=== PATIENT | male | born 1980 | race Caucasian/White ===

== ENCOUNTER 2020-10-07 15:30 | Outpatient (REF) | payer OTHER, SELFPAY | END 2020-10-07 15:31 | disposition home or self-care (01) | LOC: HO.LAB 15:30 | PROVIDERS: Visit Provider Internal Medicine | DX: Z20.828 Contact with and (suspected) exposure to other viral communicable diseases (principal) | CPT/HCPCS: 36415; C9803; U0003 ==

== ENCOUNTER 2020-12-14 11:21 | Outpatient (REF) | payer OTHER, SELFPAY ==
[2020-12-14 12:03] LABS: MANUAL DIFF FLAG NO
[2020-12-14 12:07] LABS: Basophils Percent Auto 0.5 % (0-2); Eosinophils Absolute Auto 0.2 X10*3/uL (0.0-0.4); Eosinophils Percent Auto 3.2 % (0-4); Hematocrit 42.4 % (42-52); Hemoglobin 14.5 g/dl (14.0-18.0); Imm Gran Abs Auto 0.01 X10*3/uL (0.00-0.03); Imm Gran Pct Auto 0.2 % (0.0-0.4); Lymphocytes Absolute Auto 2.3 X10*3/uL (1.2-4.9); Lymphocytes Percent Auto 37.4 % (20-40); Mean Corpuscular HGB Conc 34.2 g/dl (31.0-36.0); Mean Corpuscular Hemoglobin 29.3 pg (27.0-33.0); Mean Corpuscular Volume 85.7 fL (80-98); Mean Platelet Volume 9.8 fL (9.4-12.4); Monocytes Absolute Auto 0.5 X10*3/uL (0.1-1.2); Monocytes Percent Auto 7.7 % (2-11); Neutrophils Absolute Auto 3.1 X10*3/uL (2.0-8.3); Platelet Count 234 X10*3/uL (160-400); Red Blood Count 4.95 X10*6/uL (4.60-5.80); Red Cell Distribution Width 12.7 % (11.0-16.0)
[2020-12-14 12:36] LABS: Alanine Aminotransferase 34 U/L (0-40); Albumin Level 4.2 g/dL (3.5-5.0); Alkaline Phosphatase 66 U/L (39-117); Anion Gap 9 (12-20); Aspartate Amino Transferase 22 U/L (5-37); Bilirubin Total 0.6 mg/dL (0.0-1.0); Blood Urea Nitrogen 14 mg/dL (9-16); Calcium 8.8 mg/dL (8.4-10.2); Carbon Dioxide 30 mmol/L (22-29); Chloride 106 mmol/L (96-108); Cholesterol 217 mg/dL; Estimated Glomerular Filt Rate > 60; Glucose Fasting 89 mg/dL (60-99); HDL Cholesterol 53 mg/dL; LDL Cholesterol Calculated 141 mg/dl; Potassium 3.8 mmol/L (3.3-5.1); Sodium 141 mmol/L (135-145); Total Protein 6.9 g/dL (6.5-8.0); Triglycerides 117 mg/dL
[2020-12-14 12:48] LABS: Free T4 (Free Thyroxine) 0.94 ng/dL (0.71-1.85); Thyroid Stimulating Hormone 1.55 uIU/mL (0.32-4.0)
[2020-12-18 17:12] LABS: Testosterone, Free 67.2 pg/mL (35.0-155.0); Testosterone, Total 291 ng/dL (250-1100)
== END 2020-12-14 11:22 | disposition home or self-care (01) ==
LOC: HO.10HDL 11:21
PROVIDERS: Visit Provider Internal Medicine
DX: R53.83 Other fatigue (principal); R63.5 Abnormal weight gain; L70.9 Acne, unspecified
CPT/HCPCS: 36415; 80053; 80061; 84402; 84403; 84439; 84443; 85025

== ENCOUNTER → 2021-02-15 11:06 | Outpatient (REF) | payer OTHER, SELFPAY | LOC: HO.SL 11:06 | PROVIDERS: PCP Internal Medicine; Visit Provider Internal Medicine | DX: R53.83 Other fatigue (principal); G47.00 Insomnia, unspecified | CPT/HCPCS: 95806 ==

== ENCOUNTER 2021-04-27 14:38 | Emergency (ER) | payer OTHER, SELFPAY ==
[2021-04-27 14:51] VITALS: BP 155/106; PULSE 98; RESP 15; TEMP 36.9; O2SAT 96; BMI 36.9
[2021-04-27] MEDS: Oxymetazoline HCl 0.05 % Nasal 15 ML SPRAY 2 SPRAY NOSTRIL-B (16:23)
[2021-04-27] MEDS: Tranexamic Acid 1,000 MG/10 ML VIAL 500 MG INTRANASAL (16:23)
--- NOTE | 2021-04-27 16:41 | ED_ITS ---
History of Present Illness General Chief Complaint: Epistaxis Stated Complaint: nosebleed Time Seen by Provider: 04/27/21 15:44 Source: patient Mode of arrival: ambulatory Limitations: no limitations History of Present Illness HPI Narrative: Patient presents to ED for nose bleed. Patient states 4 days ago his puppy was playing with him and by accident bit inside left nare. Patient states since then there has been bleeding. Patient states his dog is up-to-date with rabies. Patient states this occurred 4 days ago. Related Data Previous Rx's Medication Instructions Recorded amoxicillin-pot clavulanate 1 tab PO BID 10 Days #20 tab 04/27/21 [Augmentin] Allergies Allergy/AdvReac Type Severity Reaction Status Date / Time No Known Allergies Allergy Verified 04/27/21 14:50 [No Known Allergies*] Review of Systems Review of Systems: Yes all other systems are reviewed and are negative Constitutional: Constitutional: Reports as per HPI and Reports no additional constitutional complaints Eyes: Eyes: Reports as per HPI and Reports no additional eye complaints ENT: Reports system reviewed and no additional complaints, except as documented and Reports as per HPI Comments: Nosebleed Cardiovascular: Cardiovascular: Reports as per HPI and Reports no additional cardiovascular complaints Respiratory: Respiratory: Reports as per HPI and Reports no additional respiratory complaints Gastrointestinal: Gastrointestinal: Reports as per HPI and Reports no additional gastrointestinal complaints Genitourinary: Genitourinary: Reports no additional male genitourinary complaints and Reports as per HPI Musculoskeletal: Musculoskeletal: Reports no additional musculoskeletal complaints and Reports as per HPI Neurologic: Reports system reviewed and no additional complaints, except as documented and Reports as per HPI Psychiatric: Psychiatric: Reports no additional psychiatric complaints and Reports as per HPI [facility] Social History Social History Advance Directives: No Advance Directives Information Provided: No Physical Exam Vital Signs: Vital Signs: Last Vital Signs Temp 98.5 F 04/27/21 14:51 Pulse 98 04/27/21 14:51 Resp 15 04/27/21 14:51 BP 155/106 H 04/27/21 14:51 Pulse Ox 96 04/27/21 14:51 Body Mass Index 36.9 Const: General: cooperative, healthy appearing, comfortable, no acute distress, well developed, alert, awake and Physically active Orientation/consciousness: patient oriented x3 HENMT: Other: Negative for blood in oropharynx. Patient is not having posterior nose bleed. Head: Yes normal to inspection, Yes No palpable skull fracture present, Yes normocephalic, Yes atraumatic and No abrasion General nose exam: Epistaxis present on the left Eyes: General: appearance normal, both eyes and all related structures Neck: Neck: Yes normal visual inspection, Yes full ROM, Yes no lymphadenopathy, Yes no meningeal signs, Yes trachea midline, Yes supple and No tender Chest: Chest palpation & inspection: normal inspection of the chest and normal palpation of entire chest wall Resp: Effort & Inspection: normal respiratory effort and able to speak in comp lete sentences Auscultation: clear to auscultation bilaterally Cardio: Jugular venous distension: no JVD Heart sounds: S1 normal heart sound present and S2 normal heart sound present GI: Inspection: Yes normal to inspection and No abdominal wall ecchymosis Palpation (GI): Soft to palpation, not firm, nontender, no guarding and not rigid : General: No CVA tenderness and Yes no CVA tenderness Back/Spine/Pelvis: Back: no CVA tenderness, No CVA tenderness and No back tenderness Skin: General skin exam: no rashes or lesions noted and elasticity normal Neuro: General: patient oriented x3, gait normal, no meningeal signs and CN's II-XI intact bilaterally Cranial nerves: Yes CN's II-XII intact bilaterally Extrem: General: Yes normal to inspection and Yes full ROM Psych: Appearance: grossly normal, well kempt and not disheveled Course Course Course Narrative: Will use Afrin and tranexamic acid to stop bleeding. No need for rabies immunoglobulin vaccine. Plan will be to discharge with antibiotics Reevaluation(s) Reevaluation #1: Afrin and Tranexamic acid used on left nare. Will re-evaluate Time: 16:20 Reevaluation #2: Bleeding significantly resolved. No more profuse bleeding. On re-evaluation anterior nares now able to notice small cut when dog bit. Little bit of oozing will use silver nitrate Time: 17:26 Reevaluation #3: Silver nitrate was used and successful. Bleeding completely resolved. Patient is up-to-date with tetanus and dog up-to-date with rabies. Patient will be discharged with Augmentin Time: 17:52 MDM - Epistaxis MDM Narrative Medical decision making narrative: Dog bite. nose bleed Discharge Plan Discharge Clinical Impression: Epistaxis, Dog bite Patient Disposition: Home, Self-Care Instructions: Animal Bite (ED), Nosebleed (ED) Additional Instructions: Your bleeding resolved after being given Afrin, tranemic acid, and silver nitrate. You will be discharged with antibiotics due to being bitten by dog. Return to the ED for nose bleed, redness of the nose, pus discharge, foul odor, fever, chills, any other concerning symptoms. Prescriptions: New amoxicillin-pot clavulanate [Augmentin] 875-125 mg tablet 1 tab PO BID 10 Days Qty: 20 RF: 0 Interventions: ED Discharge Assessment Last Done: 04/27/21 18:03 Discharge Date/Time: 04/27/21 18:05 Print Language: Nigerian
--- NOTE | 2021-04-27 18:02 | PC.NURSE ---
PT NOSE BLEED IN CONTROL FOR 30 MIN PT WILL GO HOME WITH INSTRUCTIONS.
== END 2021-04-27 18:05 | disposition home or self-care (01) ==
PROVIDERS: Emergency Provider Emergency Medicine; PCP Internal Medicine
DX: R04.0 Epistaxis (principal); S01.25XA Open bite of nose, initial encounter; W54.0XXA Bitten by dog, initial encounter; Y93.9 Activity, unspecified; Y92.9 Unspecified place or not applicable; Y99.9 Unspecified external cause status
CPT/HCPCS: 17250; 99283

== ENCOUNTER → 2023-04-10 11:09 | Outpatient (BNVA) | payer SELFPAY | PROVIDERS: PCP Internal Medicine; Visit Provider Physician Assistant Medical | DX: Z02.79 Encounter for issue of other medical certificate (principal) ==

== ENCOUNTER → 2025-03-12 15:43 | Outpatient (BNVA) | payer SELFPAY | PROVIDERS: PCP Internal Medicine; Visit Provider Physician Assistant | DX: Z02.79 Encounter for issue of other medical certificate (principal) ==